=== PATIENT | female | born 1980 | race American Indian/Alaskan Native ===

== ENCOUNTER 2018-07-09 12:42 | Inpatient (IN) | payer OTHER ==
[2018-07-09] MEDS ORDERED: NACL 0.9% 1000 ML 1,000 ML IV ONE (13:10)
--- NOTE | 2018-07-09 13:17 | Emergency Department Report ---
Blank Doc - Documentation Documentation: 38 yo f pmh of aortic dissection presents with abd pain with leg pain, sob, pain out of proportion labs ordered, ct ordered, MD notified placed in Rm 26
[2018-07-09] MEDS ORDERED: DILAUDID IV ONE (13:22)
[2018-07-09] MEDS ORDERED: ZOFRAN IV ONE (13:22)
[2018-07-09] MEDS ORDERED: ZOFRAN ONE (13:26)
[2018-07-09] MEDS ORDERED: DILAUDID ONE (13:26)
--- NOTE | 2018-07-09 13:27 | Emergency Department Report ---
ED Abdominal Pain HPI - General Chief Complaint: Abdominal Pain Stated Complaint: LEFT LEG PAIN Time Seen by Provider: 07/09/18 13:05 Source: patient, family Mode of arrival: Wheelchair Limitations: No Limitations - History of Present Illness Initial Comments: Patient is a 38-year-old female that presents to emergency room with left lower quadrant pain. Patient states the pain is 10 out of 10 and worsening. Patient states the pain is worse with movement and vomiting. Patient states the pain is better with rest. Patient denies fever or chills. Patient states the pain is a sharp stabbing pain. Patient states the pain is not radiating. Patient states she is also having nausea vomiting diarrhea. Patient denies blood in her vomitus and denies blood in stool. Patient states that she has a history of a carotid intimal flap that was found here and patient was placed on blood thinners. Patient does not have a carotid dissection. Patient denies chest pain. Patient denies shortness of breath. Patient denies neck pain. MD Complaint: abdominal pain -: Sudden Location: LLQ Radiation: none Migration to: no migration Severity: severe Severity scale (0 -10): 10 Quality: stabbing, sharp Consistency: constant Improves With: rest Worsens With: bowel movement, vomiting, movement Associated Symptoms: nausea, vomiting, diarrhea. denies: constipation, dysuria, hematemesis, hematochezia, melena, hematuria, anorexia, syncope - Related Data Previous Rx's Medication Instructions Recorded Last Taken Type Aspirin EC [Aspirin Enteric Coated 81 mg PO QDAY #90 tablet. 03/17/18 Unknown Rx TAB] Clopidogrel Bisulfate [Plavix] 75 mg PO DAILY #90 tablet 03/17/18 Unknown Rx Allergies Allergy/AdvReac Type Severity Reaction Status Date / Time No Known Allergies Allergy Verified 12/26/13 21:20 ED Review of Systems ROS: Stated complaint: LEFT LEG PAIN Other details as noted in HPI Constitutional: denies: chills, fever Eyes: denies: eye pain, eye discharge, vision change ENT: denies: ear pain, throat pain Respiratory: denies: cough, shortness of breath, wheezing Cardiovascular: denies: chest pain, palpitations Endocrine: no symptoms reported Gastrointestinal: abdominal pain, nausea, vomiting, diarrhea Genitourinary: denies: urgency, dysuria, discharge Musculoskeletal: denies: back pain, joint swelling, arthralgia Skin: denies: rash, lesions Neurological: denies: headache, weakness, paresthesias Psychiatric: denies: anxiety, depression Hematological/Lymphatic: denies: easy bleeding, easy bruising ED Past Medical Hx - Past Medical History Previous Medical History?: Yes Hx Hypertension: No Hx Asthma: Yes Additional medical history: Carotid abnormality. Patient is on blood thinners for this carotid abnormality - Surgical History Past Surgical History?: Yes Hx Cholecystectomy: Yes Additional Surgical History: x 3. Back Surgery 2014 - Family History Family history: no significant - Social History Smoking Status: Current Every Day Smoker Substance Use Type: None - Medications Home Medications: Home Medications Medication Instructions Recorded Confirmed Last Taken Type Aspirin EC [Aspirin Enteric Coated 81 mg PO QDAY #90 tablet.dr 03/17/18 Unknown Rx TAB] Clopidogrel Bisulfate [Plavix] 75 mg PO DAILY #90 tablet 03/17/18 Unknown Rx ED Physical Exam - General Limitations: No Limitations General appearance: alert, in no apparent distress - Head Head exam: Present: atraumatic, normocephalic - Eye Eye exam: Present: normal appearance - ENT ENT exam: Present: mucous membranes moist - Neck Neck exam: Present: normal inspection - Respiratory Respiratory exam: Present: normal lung sounds bilaterally. Absent: respiratory distress - Cardiovascular Cardiovascular Exam: Present: regular rate, normal rhythm. Absent: systolic murmur, diastolic murmur, rubs, gallop - GI/Abdominal GI/Abdominal exam: Present: soft, tenderness (left lower quadrant tenderness.), normal bowel sounds. Absent: distended, guarding, rebound - Extremities Exam Extremities exam: Present: normal inspection - Back Exam Back exam: Present: normal inspection - Neurological Exam Neurological exam: Present: alert, oriented X3 - Psychiatric Psychiatric exam: Present: normal affect, normal mood - Skin Skin exam: Present: warm, dry, intact, normal color. Absent: rash ED Course Vital Signs 07/09/18 07/09/18 07/09/18 13:12 13:19 13:20 Temperature 98.2 F Pulse Rate 76 74 Respiratory 18 12 10 L Rate Blood Pressure 136/75 148/126 148/126 O2 Sat by Pulse 100 Oximetry 07/09/18 07/09/18 07/09/18 13:26 13:30 13:36 Temperature Pulse Rate 74 74 59 L Respiratory 27 H 21 12 Rate Blood Pressure 148/126 148/126 109/72 O2 Sat by Pulse 96 100 100 Oximetry 07/09/18 07/09/18 07/09/18 13:40 13:46 13:50 Temperature Pulse Rate 70 57 L 61 Respiratory 12 16 14 Rate Blood Pressure 109/72 109/72 106/72 O2 Sat by Pulse 99 100 97 Oximetry 07/09/18 07/09/18 07/09/18 13:56 14:00 14:05 Temperature Pulse Rate 56 L 68 55 L Respiratory 15 25 H 18 Rate Blood Pressure 106/72 106/72 O2 Sat by Pulse 89 100 Oximetry 07/09/18 07/09/18 07/09/18 14:10 14:37 14:40 Temperature Pulse Rate 55 L 160 H Respiratory 20 12 Rate Blood Pressure 125/67 106/72 106/72 O2 Sat by Pulse 99 99 100 Oximetry 07/09/18 07/09/18 07/09/18 14:46 14:50 14:56 Temperature Pulse Rate 164 H 167 H 171 H Respiratory 17 20 19 Rate Blood Pressure 132/85 132/85 132/85 O2 Sat by Pulse 96 98 97 Oximetry 07/09/18 07/09/18 07/09/18 15:00 15:06 15:10 Temperature Pulse Rate 180 H 189 H 189 H Respiratory 21 15 18 Rate Blood Pressure 124/78 124/78 124/78 O2 Sat by Pulse 95 99 99 Oximetry 07/09/18 07/09/18 07/09/18 15:16 15:20 15:26 Temperature Pulse Rate 156 H 98 H 88 Respiratory 13 18 18 Rate Blood Pressure 140/94 132/85 132/85 O2 Sat by Pulse 100 100 100 Oximetry 07/09/18 15:30 Temperature Pulse Rate 94 H Respiratory 14 Rate Blood Pressure 132/85 O2 Sat by Pulse 100 Oximetry - Reevaluation(s) Reevaluation #1: Patient resting. Patient's heart rate went to 195. Patient will be given fluids and Cardizem. Patient complains of shortness of breath and palpitations. 07/09/18 15:13 Patient's SVT resolved with Cardizem and fluids. Patient states her shortness of breath has resolved. Patient to be admitted to the hospitalist service. Discussed all results with patient. Discussed plan of care with patient. Patient agrees with plan of care and admission. 02/06/19 15:20 - Consultations Consultation #1: Hospitalist consulted for admission. Hospitalist to admit patient. Hospitalist to assume care of the patient 07/09/18 16:16 ED Medical Decision Making - Lab Data Result diagrams: 07/09/18 13:24 07/09/18 13:24 - EKG Data -: EKG Interpreted by Me EKG shows normal: sinus rhythm, axis, intervals, QRS complexes, ST-T waves Rate: normal - Radiology Data Radiology results: report reviewed CT ABDOMEN PELVIS WITH CONTRAST: HISTORY: abdominal pain. COMPARISON: none. TECHNIQUE: Helical CT in 1.25mm intervals following IV contrast. Sagittal and coronal reconstructions. FINDINGS: Lung bases: Normal. Liver: Normal. Biliary system: Cholecystectomy. No biliary dilatation. Pancreas: Normal. Spleen: Normal. Kidneys/ureters/bladder: Normal. Adrenal glands: Normal. Aorta: Normal. Intestines: Normal. Appendix: Normal. Pelvic viscera: An approximate 5 cm fibroid is suspected in the posterior wall of the uterus. There are 2 cysts in the left ovary measuring 2.1 cm and 2.2 cm. The right ovary is unremarkable. Ascites: None. Adenopathy: None. Musculoskeletal: Normal. IMPRESSION: Uterine fibroid disease. 2 left ovarian cysts as described. No acute inflammatory process is appreciated. - Medical Decision Making Patient is a 38-year-old female up since emergency with abdominal pain in her left lower quadrant and nausea and vomiting. Patient's abdominal workup was negative. Labs unremarkable. EKG is normal. After CT scan, patient went into a tachycardic/SVT rhythm and complained of shortness of breath and palpitations. Patient was given fluids and Cardizem and SVT quickly resolved. Patient was admitted to the hospitalist service for further cardiac workup. - Differential Diagnosis abdominal pain. Intractable nausea and vomiting. SVT. Critical Care Time: Yes Critical care attestation.: If time is entered above; I have spent that time in minutes in the direct care of this critically ill patient, excluding procedure time. Critical Care Time: 35 minutes ED Disposition Clinical Impression: Tachycardia, SVT (supraventricular tachycardia), SOB (shortness of breath), Gastroenteritis Abdominal pain Qualifiers: Abdominal location: left lower quadrant Qualified Code(s): R10.32 - Left lower quadrant pain Nausea & vomiting Qualifiers: Vomiting type: unspecified Vomiting Intractability: intractable Qualified Code(s): R11.2 - Nausea with vomiting, unspecified HTN (hypertension) Qualifiers: Hypertension type: essential hypertension Qualified Code(s): I10 - Essential (primary) hypertension Disposition: DC-09 OP ADMIT IP TO THIS HOSP Is pt being admited?: Yes Does the pt Need Aspirin: No Condition: Critical Time of Disposition: 15:24
[2018-07-09 13:41] LABS: Basophils # (Auto) 0.1 K/mm3 (0.0-0.1); Basophils % (Auto) 0.5 % (0.0-1.8); Eosinophils # (Auto) 0.1 K/mm3 (0.0-0.4); Eosinophils % (Auto) 0.6 % (0.0-4.3); Hematocrit 33.6 % (30.3-42.9); Hemoglobin 10.7 gm/dl (10.1-14.3); Lymphocytes # (Auto) 1.4 K/mm3 (1.2-5.4); Lymphocytes % (Auto) 14.7 % (13.4-35.0); Mean Corpuscular HGB Conc 32 % (30-34); Mean Corpuscular Volume 86 fl (79-97); Monocytes # (Auto) 0.6 K/mm3 (0.0-0.8); Monocytes % (Auto) 6.2 % (0.0-7.3); Platelet Count 367 K/mm3 (140-440); Red Blood Count 3.89 M/mm3 (3.65-5.03); Red Cell Distribution Width 16.2 % (13.2-15.2)
[2018-07-09 13:57] LABS: INR 0.95 (0.87-1.13); Partial Thromboplastin Time 27.1 Sec. (24.2-36.6)
[2018-07-09 14:01] LABS: Alanine Aminotransferase 10 units/L (7-56); Albumin 4.5 g/dL (3.9-5); BUN/Creatinine Ratio 9; Blood Urea Nitrogen 6 mg/dL (7-17); Calcium 9.3 mg/dL (8.4-10.2); Hemolysis Index 4
--- NOTE | 2018-07-09 14:44 | Cat Scan Report ---
CT ABDOMEN PELVIS WITH CONTRAST: HISTORY: abdominal pain. COMPARISON: none. TECHNIQUE: Helical CT in 1.25mm intervals following IV contrast. Sagittal and coronal reconstructions. FINDINGS: Lung bases: Normal. Liver: Normal. Biliary system: Cholecystectomy. No biliary dilatation. Pancreas: Normal. Spleen: Normal. Kidneys/ureters/bladder: Normal. Adrenal glands: Normal. Aorta: Normal. Intestines: Normal. Appendix: Normal. Pelvic viscera: An approximate 5 cm fibroid is suspected in the posterior wall of the uterus. There are 2 cysts in the left ovary measuring 2.1 cm and 2.2 cm. The right ovary is unremarkable. Ascites: None. Adenopathy: None. Musculoskeletal: Normal. IMPRESSION: Uterine fibroid disease. 2 left ovarian cysts as described. No acute inflammatory process is appreciated.
[2018-07-09] MEDS ORDERED: CARDIZEM ONE (15:15)
[2018-07-09 16:44] VITALS: BP 118/73
[2018-07-09] MEDS ORDERED: APRESOLINE IV PRN (16:46)
== END 2018-07-09 18:15 | disposition left against medical advice (07) | DRG 392 ==
LOC: ED 12:42 → 4A 16:15
PROVIDERS: ADMIT Internal Medicine; ATTEND Internal Medicine
DX: K52.9 Noninfective gastroenteritis and colitis, unspecified (principal); I47.1 Supraventricular tachycardia; J45.909 Unspecified asthma, uncomplicated; F17.200 Nicotine dependence, unspecified, uncomplicated; I10 Essential (primary) hypertension; Z90.49 Acquired absence of other specified parts of digestive tract; Z79.82 Long term (current) use of aspirin; Z79.899 Other long term (current) drug therapy
CPT/HCPCS: 36415; 74177; 80053; 82140; 84703; 85025; 85610; 85730; 93005; 93010; G0378; J1170; J2405; J7030; Q9967

== ENCOUNTER 2022-02-16 21:31 | Emergency (ER) | payer SELFPAY ==
[2022-02-16 21:40] VITALS: BP 201/93
== END 2022-02-17 05:13 | disposition left against medical advice (07) ==
LOC: ED 21:31
DX: K08.89 Other specified disorders of teeth and supporting structures (principal); Z53.21 Procedure and treatment not carried out due to patient leaving prior to being seen by health care provider